=== PATIENT | male | born 1950 | race Caucasian/White ===

== ENCOUNTER 2016-10-06 06:58 | Emergency (ER) | payer MEDICARE, OTHER ==
[~2016-10-06] VITALS: Ht 175.3 cm; Wt 105.2 kg
[2016-10-06] MEDS ORDERED: CALC600T57 PO (07:20)
[2016-10-06] MEDS ORDERED: VITA-122 PO (07:20)
[2016-10-06] MEDS ORDERED: GLUC750C4 PO (07:20)
[2016-10-06] MEDS ORDERED: METF500T PO (07:20)
[2016-10-06] MEDS ORDERED: FEXO60CA PO (07:20)
[2016-10-06] MEDS ORDERED: LISI10TA4 PO (07:20)
[2016-10-06] MEDS ORDERED: ASPI81TA85 PO (07:20)
[2016-10-06] MEDS ORDERED: FISH1000 PO (07:20)
[2016-10-06] MEDS ORDERED: ATOR1TAB21 PO (07:20)
[2016-10-06] MEDS ORDERED: SULF500T2 PO (07:20)
[2016-10-06] MEDS ORDERED: DILT120C PO (07:20)
[2016-10-06] MEDS ORDERED: VITA400C35 PO (07:20)
[2016-10-06] MEDS ORDERED: XARE20TA PO (07:20)
[2016-10-06] MEDS ORDERED: ONDANSETRON 4MG/2ML VIAL (J2405) IV ONE (07:45)
[2016-10-06] MEDS ORDERED: MORPHINE 4 MG/ML 1ML SYRINGE IV PRN (07:45)
[2016-10-06 08:02] LABS: BASO % 0.4 % (0.0-1.0); EOS # 0.2 K/mm3 (0.0-0.50); EOS % 3.1 % (0.0-3.0); LARGE UNSTAINED CELL # 0.2 K/mm3 (0.0-0.4); LARGE UNSTAINED CELL % 2.8 % (0.0-4.0); LYMPH # 2.3 K/mm3 (1.5-4.5); LYMPH % 33.6 % (24.0-44.0); MEAN CORPUSCULAR HEMOGLOBIN 30.8 pg (27.0-33.0); MEAN CORPUSCULAR HGB CONC 32.8 g/dl (32.0-36.5); MEAN CORPUSCULAR VOLUME 93.7 fl (80.0-96.0); MONO # 0.5 K/mm3 (0.0-0.8); MONO % 7.3 % (0.0-5.0); NEUTROPHILS # 3.3 K/mm3 (1.8-7.7); NEUTROPHILS % 52.8 % (36.0-66.0); PLATELET COUNT, AUTOMATED 146 k/mm3 (150-450); RED CELL DISTRIBUTION WIDTH 13.8 % (11.5-14.5); WHITE BLOOD COUNT 6.3 K/mm3 (4.0-10.0)
[2016-10-06 08:19] LABS: ALBUMIN/GLOBULIN RATIO 1.14 (1.00-1.93); ALKALINE PHOSPHATASE 43 U/L (45-117); ALT/SGPT 39 U/L (12-78); ANION GAP 9 MEQ/L (8-16); AST/SGOT 41 U/L (15-37); BILIRUBIN,DIRECT 0.1 MG/DL (0.0-0.2); BILIRUBIN,TOTAL 0.4 MG/DL (0.2-1.0); BLOOD UREA NITROGEN 17 MG/DL (7-18); CALCIUM LEVEL 9.2 MG/DL (8.8-10.2); CARBON DIOXIDE LEVEL 25 MEQ/L (21-32); CHLORIDE LEVEL 105 MEQ/L (98-107); CREATININE FOR GFR 1.18 MG/DL (0.70-1.30); GLOMERULAR FILTRATION RATE > 60.0 (>49); GLUCOSE, FASTING 121 MG/DL (80-110); POTASSIUM SERUM 4.4 MEQ/L (3.5-5.1); SODIUM LEVEL 139 MEQ/L (136-145); TOTAL PROTEIN 7.5 GM/DL (6.4-8.2)
[2016-10-06] MEDS ORDERED: KETOROLAC 30 MG/ML VIAL (J1885) IV ONE (08:45)
--- NOTE | 2016-10-06 09:41 | REP ---
REASON: Abdominal pain. COMPARISON: Frontal view of the chest 12/14/2013, a portable exam. There is no change in the appearance of the frontal view of the chest. There is no free subdiaphragmatic air or acute abnormal opacities. Supine and upright views of the abdomen show a few gas-filled nondilated small loops scattered about the abdomen in no particular fashion. The organ silhouettes are obscured by intestinal content. IMPRESSION: Nonspecific intestinal gas pattern, possible early developing mild ileus. ? Signed by Juan Yoder DO 10/06/2016 10:20 A
[2016-10-06] MEDS ORDERED: ISOVUE-370 76% 100ML VIAL (Q9967) As Ordered ONE (13:06)
[2016-10-06] MEDS ORDERED: TRAM50TA2 PO (14:13)
--- NOTE | 2016-10-06 14:25 | REP ---
REASON: Right-sided chest pain. COMPARISON: None. Standard chest CT of 03/12/2007 was reviewed. Contrast utilized 100 mL Isovue 370. There is no mediastinal or hilar adenopathy or significant change compared to the prior exam. There are no pleural or pericardial effusions. There is no change in the imaged upper abdomen or imaged osseous structures. There is excellent visualization of the pulmonary arterial vasculature. There are no focal filling defects present that would be considered consistent with pulmonary emboli. Evaluation of the lung post show a bibasilar dependent subsegmental atelectatic changes. There is unchanged smooth pleural thickening left upper lobe and left mid lung zone regions along with right upper lobe. This is unchanged on the left, increased on the right. No new abnormal nodules, masses or parenchymal opacities have developed. IMPRESSION: No evidence of a pulmonary embolus. Mild pleural thickening as described above. Signed by Juan Yoder DO 10/06/2016 02:32 P
[2016-10-06 14:30] VITALS: BP 139/81
--- NOTE | 2016-10-07 09:13 | ECGEPIP ---
Stationary ECG Study [facility] - ED Test Date: 2016-10-06 Pat Name: CARLEE ZHENG Department: Room: - Gender: M Branding Specialist: noah : 1950 Requested By: Valentin Crowell Order Number: [id number] Reading MD: Merle Trevizo Measurements Intervals [place] Rate: 80 P: [place]: 0 QRS: 51 QRSD: 95 T: 16 QT: 357 QTc: 412 Interpretive Statements ATRIAL FIBRILLATION POSSIBLE ANTERIOR MYOCARDIAL INFARCTION, OF INDETERMINATE AGE NSTTW ABNORMALITY DECREASED RATE 12/14/13 Electronically Signed On 10-07-2016 9:12:53 EDT by Merle Trevizo
--- NOTE | 2016-10-07 09:17 | ECGEPIP ---
Stationary ECG Study [facility] - ED Test Date: 2016-10-06 Pat Name: CARLEE ZHENG Department: Room: - Gender: M Charge Aide: ROSAURA : 1950 Requested By: Valentin Crowell Order Number: [id number] Reading MD: Merle Trevizo Measurements Intervals [place] Rate: 70 P: [place]: 0 QRS: 38 QRSD: 101 T: 8 QT: 358 QTc: 386 Interpretive Statements ATRIAL FIBRILLATION POSSIBLE ANTERIOR MYOCARDIAL INFARCTION, OF INDETERMINATE AGE NSTTW ABNORMALITY DECREASED RATE 10/06/16 7:16 Electronically Signed On 10-07-2016 9:16:43 EDT by Merle Trevizo
== END 2016-10-06 14:48 | disposition home or self-care (01) ==
LOC: M ED 08:09
DX: S29.011A Strain of muscle and tendon of front wall of thorax, initial encounter (principal); I48.2 Chronic atrial fibrillation
CPT/HCPCS: 71275; 74022; 80048; 80076; 82550; 82553; 83690; 84484; 85025; 85379; 93005; 93041; 96374; 96375; 99285; J1885; Q9967

== ENCOUNTER 2017-01-24 05:59 | Day surgery (SDC) | payer MEDICARE, OTHER ==
[~2017-01-24] VITALS: Ht 175.3 cm; Wt 104.3 kg
[~2017-01-24 05:59] MED LIST: AMIO200T PO; ASPI81TA85 PO; ATOR1TAB21 PO; CALC600T31 PO; CALC600T57 PO; DILT120C PO; FEXO60CA PO; FISH1000 PO; GLUC750C4 PO; LISI10TA4 PO; METF500T13 PO; SULF500T2 PO; TRAM50TA2 PO; VITA-122 PO; VITA400C35 PO; XARE10TA PO; XARE20TA PO
[2017-01-24] MEDS ORDERED: LR 1,000 ML IV SCH ×2 (06:30→08:30)
[2017-01-24] MEDS ORDERED: PROPOFOL 200 MG/20 ML VIAL As Ordered ONE (07:18)
[2017-01-24] MEDS ORDERED: MIDAZOLAM INJ 2 MG/2 ML VIAL (J2250) As Ordered ONE (07:18)
[2017-01-24] MEDS ORDERED: LIDOCAINE 2% INJ 100 MG/5 ML SDV (FOR ANES.) As Ordered ONE (07:18)
--- NOTE | 2017-01-24 07:54 | RO ---
DATE OF PROCEDURE: 01/24/2017 INDICATION: Atrial fibrillation. POSTPROCEDURE DIAGNOSIS: Resumption of sinus rhythm. PROCEDURE: Direct current (DC) cardioversion. SURGEON: Dr. Cesar Milan MARINE STEAMFITTER: None ANESTHESIA: TYREE Riley MD BRIEF HISTORY: Mr. Souza is a 66-year-old man who has had persistent atrial fibrillation for approximately 3 months. He was started on amiodarone on an outpatient basis and because he failed to convert to sinus rhythm spontaneously he is brought for DC cardioversion in an elective setting. The consent for the procedure was previously obtained on outpatient basis. I examined the patient on the day of the procedure and there was no change in his clinical state. The patient and the patient's family questions were all answered before the procedure. The procedure was performed in the recovery room. Sedation was provided by anesthesiology service. He received a total of 150 mg of iv propofol. When appropriate level of sedation was accomplished, he was cardioverted using 200 joules of energy in biphasic mode administered in synchronized fashion. It led to faith of sinus mechanism without post conversion pause. There were no immediate complications and the patient tolerated the procedure well. He will be discharged home on his chronic medications with the exception of reducing the amiodarone to 200 mg daily from the current 400 mg. Remaining medications will be continued. I will see him in followup next week. GRETA
[2017-01-24] MEDS ORDERED: ONDANSETRON 4MG/2ML VIAL (J2405) IV PRN (08:30)
[2017-01-24 08:35] VITALS: BP 140/74
[2017-01-24] MEDS ORDERED: AMIODARONE 200 MG TAB (PACERONE) PO SCH (09:00)
--- NOTE | 2017-01-24 18:16 | ECGEPIP ---
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 Low limb voltages with slow precordial R-wave progression and persistent S waves in V5 and V6; body habitus versus pulmonary disease. Rule out prior septal injury. No change from 10/06/16 Electronically Signed On 01-24-2017 18:15:58 EDT by Dominic May
--- NOTE | 2017-01-24 18:22 | ECGEPIP ---
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 First-degree AV block Low voltages with slow precordial R-wave progression, persistent S waves V5 and V6, and small Q waves III and aVF;Body habitus versus pulmonary disease. Rule out prior Septal/Inferior injury No change from earlier this same day. Electronically Signed On 01-24-2017 18:22:30 EDT by Dominic May
== END 2017-01-24 08:45 | disposition home or self-care (01) ==
LOC: M SDC 05:59
PROVIDERS: ATTEND Internal Medicine Cardiovascular Disease
DX: I48.0 Paroxysmal atrial fibrillation (principal); E78.5 Hyperlipidemia, unspecified; E11.9 Type 2 diabetes mellitus without complications; E66.9 Obesity, unspecified; I11.9 Hypertensive heart disease without heart failure; M15.0 Primary generalized (osteo)arthritis; M06.9 Rheumatoid arthritis, unspecified; R60.9 Edema, unspecified; G47.33 Obstructive sleep apnea (adult) (pediatric); R06.02 Shortness of breath; R06.83 Snoring; N40.2 Nodular prostate without lower urinary tract symptoms; Z79.899 Other long term (current) drug therapy; Z79.84 Long term (current) use of oral hypoglycemic drugs; Z79.01 Long term (current) use of anticoagulants; Z96.1 Presence of intraocular lens; Z87.891 Personal history of nicotine dependence

== ENCOUNTER → 2017-01-29 | Outpatient (CLI) | payer MEDICARE, OTHER ==
[2017-01-29 11:25] LABS: BASO % 0.4 % (0.0-1.0); EOS # 0.1 K/mm3 (0.0-0.50); EOS % 2.1 % (0.0-3.0); LARGE UNSTAINED CELL # 0.1 K/mm3 (0.0-0.4); LARGE UNSTAINED CELL % 2.4 % (0.0-4.0); LYMPH # 1.9 K/mm3 (1.5-4.5); LYMPH % 29.1 % (24.0-44.0); MEAN CORPUSCULAR HEMOGLOBIN 30.9 pg (27.0-33.0); MEAN CORPUSCULAR HGB CONC 33.1 g/dl (32.0-36.5); MEAN CORPUSCULAR VOLUME 93.4 fl (80.0-96.0); MONO # 0.4 K/mm3 (0.0-0.8); NEUTROPHILS # 3.5 K/mm3 (1.8-7.7); PLATELET COUNT, AUTOMATED 166 k/mm3 (150-450); RED CELL DISTRIBUTION WIDTH 14.2 % (11.5-14.5)
[2017-01-29 12:48] LABS: ALBUMIN 4.2 GM/DL (3.2-5.2); ALBUMIN/GLOBULIN RATIO 1.24 (1.00-1.93); BILIRUBIN,TOTAL 0.4 MG/DL (0.2-1.0); CALCIUM LEVEL 9.1 MG/DL (8.8-10.2); CREATININE FOR GFR 1.28 MG/DL (0.70-1.30); GLOMERULAR FILTRATION RATE 59.7 (>49); MAGNESIUM LEVEL 2.1 MG/DL (1.8-2.4); POTASSIUM SERUM 4.9 MEQ/L (3.5-5.1); TOTAL PROTEIN 7.6 GM/DL (6.4-8.2)
== END ==
LOC: M LAB 10:51
PROVIDERS: ATTEND Emergency Medicine
DX: E55.9 Vitamin D deficiency, unspecified (principal); E11.9 Type 2 diabetes mellitus without complications; I10 Essential (primary) hypertension; E78.2 Mixed hyperlipidemia; I48.2 Chronic atrial fibrillation

== ENCOUNTER → 2017-04-16 | Outpatient (CLI) | payer MEDICARE, OTHER ==
[2017-04-16 11:22] LABS: MEAN CORPUSCULAR HEMOGLOBIN 30.4 pg (27.0-33.0); MEAN CORPUSCULAR HGB CONC 32.5 g/dl (32.0-36.5); MEAN CORPUSCULAR VOLUME 93.8 fl (80.0-96.0); PLATELET COUNT, AUTOMATED 186 10^3/uL (150-450); RED CELL DISTRIBUTION WIDTH 14.6 % (11.5-14.5); WHITE BLOOD COUNT 5.9 10^3/uL (4.0-10.0)
[2017-04-16 11:45] LABS: CALCIUM LEVEL 9.1 MG/DL (8.8-10.2); CREATININE FOR GFR 1.29 MG/DL (0.70-1.30); GLOMERULAR FILTRATION RATE 59.1 (>49); POTASSIUM SERUM 4.7 MEQ/L (3.5-5.1)
== END ==
LOC: M LAB 10:33
PROVIDERS: ATTEND Nurse Practitioner
DX: Z01.812 Encounter for preprocedural laboratory examination (principal); Z79.899 Other long term (current) drug therapy

== ENCOUNTER 2017-05-29 05:55 | Day surgery (SDC) | payer MEDICARE, OTHER ==
[~2017-05-29] VITALS: Ht 175.3 cm; Wt 101.2 kg
[~2017-05-29 05:55] MED LIST changes: +OMEP40CA2 PO
[2017-05-29] MEDS ORDERED: LR 1,000 ML IV SCH (06:00)
[2017-05-29] MEDS ORDERED: LIDOCAINE 2% INJ 100 MG/5 ML SDV (FOR ANES.) As Ordered ONE (07:00)
[2017-05-29] MEDS ORDERED: PROPOFOL 200 MG/20 ML VIAL As Ordered ONE (07:00)
--- NOTE | 2017-05-29 07:53 | RO ---
DATE OF PROCEDURE: 05/29/2017 PREPROCEDURE DIAGNOSIS: Atrial fibrillation POSTPROCEDURE DIAGNOSIS: Pentecostal of sinus rhythm PROCEDURE: Cardioversion SURGEON: Cesar Milan MD SENIOR SVP: None ANESTHESIA: HISTORY: Mr. Souza is a 66-year-old man who has a history of persistent atrial fibrillation diagnosed earlier this year. He had ablation performed in [place] in March, but there has been a relapse and he was brought electively for DC cardioversion. The nature of the procedure was discussed with the patient on an outpatient basis and appropriate consent was obtained. He was brought to the recovery room in fasting condition. The examination did not change from prior evaluations. PROCEDURE NOTE: Anesthesiology service provided sedation. IV propofol was used in total dose 190 mg. After appropriate level sedation was accomplished, he was cardioverted with 200 joules of energy with defibrillator patches applied in anterior position. He tolerated the procedure well and there were no immediate complications. A 12-lead ECG is pending at the time of my dictation. He will be discharged home to resume preadmission medications. Follow up will be arranged in my office next week. GRETA
[2017-05-29 08:35] VITALS: BP 148/67
--- NOTE | 2017-05-29 09:28 | ECGEPIP ---
Stationary ECG Study [facility] Test Date: 2017-05-29 Pat Name: CARLEE ZHENG Department: Room: - Gender: M Neckties Painter: [facility] : 1950 Requested By: Cesar Milan Order Number: [id number] Reading MD: Dominic May Measurements Intervals [place] Rate: 78 P: [place]: 0 QRS: 63 QRSD: 94 T: 25 QT: 371 QTc: 423 Interpretive Statements Underlying atrial fibrillation with controlled ventricular response. Low voltages with poor precordial R-wave progression, and Persistent S waves in V5 and V6; body habitus versus pulmonary disease. Rule out prior septal injury. Nonspecific ST/T-wave abnormalities. Rhythm change from 01/24/17 Electronically Signed On 05-29-2017 9:27:37 EST by Dominic May
--- NOTE | 2017-05-29 09:34 | ECGEPIP ---
Stationary ECG Study [facility] Test Date: 2017-05-29 Pat Name: CARLEE ZHENG Department: Room: - Gender: M Plating Inspector: : 1950 Requested By: Cesar Milan Order Number: [id number] Reading MD: Dominic May Measurements Intervals [place] Rate: 70 P: 68 [place]: 233 QRS: 62 QRSD: 93 T: 43 QT: 388 QTc: 421 Interpretive Statements Normal sinus rhythm. Left atrial conduction disturbance. First-degree AV block. Low voltages with slow precordial R-wave progression, And persistent S waves in V5 and V6; body habitus versus pulmonary disease. Rule out prior septal injury. Subtle nonspecific ST/T-wave abnormalities. Rhythm has converted from earlier the same day. Electronically Signed On 05-29-2017 9:34:30 EST by Dominic May
== END 2017-05-29 08:37 | disposition home or self-care (01) ==
LOC: M SDC 05:55
PROVIDERS: ATTEND Internal Medicine Cardiovascular Disease
DX: I48.91 Unspecified atrial fibrillation (principal); I11.9 Hypertensive heart disease without heart failure; E11.9 Type 2 diabetes mellitus without complications; E78.00 Pure hypercholesterolemia, unspecified; R29.898 Other symptoms and signs involving the musculoskeletal system; M06.9 Rheumatoid arthritis, unspecified; M15.0 Primary generalized (osteo)arthritis; R06.83 Snoring; G47.33 Obstructive sleep apnea (adult) (pediatric); N40.0 Benign prostatic hyperplasia without lower urinary tract symptoms; J30.9 Allergic rhinitis, unspecified; Z79.899 Other long term (current) drug therapy; Z79.01 Long term (current) use of anticoagulants; Z79.84 Long term (current) use of oral hypoglycemic drugs; Z96.1 Presence of intraocular lens

== ENCOUNTER → 2017-08-02 | Outpatient (CLI) | payer MEDICARE, OTHER ==
[2017-08-02 11:14] LABS: BASO % 0.3 % (0.0-1.0); EOS # 0.1 10^3/uL (0.0-0.50); HEMATOCRIT 43.3 % (42.0-52.0); HEMOGLOBIN 13.8 g/dl (14.0-18.0); IMMATURE GRANULOCYTE % 0.3 % (0-3.0); LYMPH # 2.5 10^3/uL (1.5-4.5); LYMPH % 37.4 % (24.0-44.0); MEAN CORPUSCULAR HEMOGLOBIN 29.2 pg (27.0-33.0); MEAN CORPUSCULAR HGB CONC 31.9 g/dl (32.0-36.5); MEAN CORPUSCULAR VOLUME 91.7 fl (80.0-96.0); MONO # 0.6 10^3/uL (0.0-0.8); MONO % 9.3 % (0.0-5.0); NEUTROPHILS # 3.3 10^3/uL (1.8-7.7); NEUTROPHILS % 50.7 % (36.0-66.0); PLATELET COUNT, AUTOMATED 187 10^3/uL (150-450); RED BLOOD COUNT 4.72 10^6/uL (4.30-6.10); RED CELL DISTRIBUTION WIDTH 16.1 % (11.5-14.5); WHITE BLOOD COUNT 6.6 10^3/uL (4.0-10.0)
[2017-08-02 11:42] LABS: ESTIMATED AVERAGE GLUCOSE 128 MG/DL (60-110); HEMOGLOBIN A1c 6.1 %
[2017-08-02 11:45] LABS: ALBUMIN 3.8 GM/DL (3.2-5.2); ALBUMIN/GLOBULIN RATIO 1.19 (1.00-1.93); ALKALINE PHOSPHATASE 61 U/L (45-117); ALT/SGPT 30 U/L (12-78); ANION GAP 7 MEQ/L (8-16); AST/SGOT 25 U/L (7-37); BILIRUBIN,TOTAL 0.3 MG/DL (0.2-1.0); BLOOD UREA NITROGEN 18 MG/DL (7-18); CALCIUM LEVEL 8.9 MG/DL (8.8-10.2); CARBON DIOXIDE LEVEL 26 MEQ/L (21-32); CHLORIDE LEVEL 110 MEQ/L (98-107); CHOLESTEROL LEVEL 135 MG/DL (<200); CREATININE FOR GFR 1.16 MG/DL (0.70-1.30); GLOMERULAR FILTRATION RATE > 60.0 (>49); GLUCOSE, FASTING 102 MG/DL (70-100); HDL CHOLESTEROL 34 MG/DL (>40); MAGNESIUM LEVEL 2.1 MG/DL (1.8-2.4); NON-HDL-C 101 MG/DL; POTASSIUM SERUM 5.1 MEQ/L (3.5-5.1); SODIUM LEVEL 143 MEQ/L (136-145); TRIGLYCERIDES LEVEL 170 MG/DL (<150)
[2017-08-02 12:23] LABS: TOTAL 25(OH) VITAMIN D 17.6 NG/ML (30.0-100.0)
== END ==
LOC: M LAB 10:24
DX: E55.9 Vitamin D deficiency, unspecified (principal); I10 Essential (primary) hypertension; E78.2 Mixed hyperlipidemia; E11.9 Type 2 diabetes mellitus without complications; I48.2 Chronic atrial fibrillation
CPT/HCPCS: 83735

== ENCOUNTER → 2018-02-05 | Outpatient (CLI) | payer MEDICARE, OTHER ==
[2018-02-05 10:17] LABS: BASO % 0.3 % (0.0-1.0); EOS # 0.1 10^3/uL (0.0-0.50); EOS % 1.8 % (0.0-3.0); HEMATOCRIT 42.8 % (42.0-52.0); IMMATURE GRANULOCYTE % 0.3 % (0-3.0); LYMPH # 2.1 10^3/uL (1.5-4.5); LYMPH % 34.1 % (24.0-44.0); MEAN CORPUSCULAR HEMOGLOBIN 30.5 pg (27.0-33.0); MEAN CORPUSCULAR HGB CONC 32.7 g/dl (32.0-36.5); MEAN CORPUSCULAR VOLUME 93.2 fl (80.0-96.0); MONO # 0.6 10^3/uL (0.0-0.8); MONO % 9.5 % (0.0-5.0); NEUTROPHILS # 3.3 10^3/uL (1.8-7.7); PLATELET COUNT, AUTOMATED 163 10^3/uL (150-450); RED BLOOD COUNT 4.59 10^6/uL (4.30-6.10); WHITE BLOOD COUNT 6.2 10^3/uL (4.0-10.0)
[2018-02-05 10:56] LABS: ALBUMIN 3.9 GM/DL (3.2-5.2)
[2018-02-05 10:56] LABS: FERRITIN 390 NG/ML (26-388); IRON (FE) 75 UG/DL (65-175); PERCENT SATURATION 23.3 % (19.7-50.0); TOTAL IRON BINDING CAPACITY 322 UG/DL (250-450)
[2018-02-05 11:01] LABS: ESTIMATED AVERAGE GLUCOSE 123 MG/DL (60-110); HEMOGLOBIN A1c 5.9 %
== END ==
LOC: M LAB 09:34
DX: Z01.812 Encounter for preprocedural laboratory examination (principal); M17.12 Unilateral primary osteoarthritis, left knee
CPT/HCPCS: 82040

== ENCOUNTER → 2018-02-05 | Outpatient (CLI) | payer MEDICARE, OTHER ==
[2018-02-05 10:17] LABS: BASO % 0.5 % (0.0-1.0); EOS # 0.1 10^3/uL (0.0-0.50); EOS % 2.2 % (0.0-3.0); HEMATOCRIT 43.8 % (42.0-52.0); HEMOGLOBIN 14.1 g/dl (13.5-17.5); IMMATURE GRANULOCYTE % 0.3 % (0-3.0); LYMPH # 2.2 10^3/uL (1.5-4.5); LYMPH % 33.2 % (24.0-44.0); MEAN CORPUSCULAR HEMOGLOBIN 30.6 pg (27.0-33.0); MEAN CORPUSCULAR HGB CONC 32.2 g/dl (32.0-36.5); MONO # 0.7 10^3/uL (0.0-0.8); MONO % 10.1 % (0.0-5.0); NEUTROPHILS # 3.5 10^3/uL (1.8-7.7); NEUTROPHILS % 53.7 % (36.0-66.0); PLATELET COUNT, AUTOMATED 158 10^3/uL (150-450); RED BLOOD COUNT 4.61 10^6/uL (4.30-6.10); RED CELL DISTRIBUTION WIDTH 14.9 % (11.5-14.5); WHITE BLOOD COUNT 6.5 10^3/uL (4.0-10.0)
[2018-02-05 11:02] LABS: ESTIMATED AVERAGE GLUCOSE 117 MG/DL (60-110); HEMOGLOBIN A1c 5.7 %
[2018-02-05 11:04] LABS: ALBUMIN 3.9 GM/DL (3.2-5.2); ALBUMIN/GLOBULIN RATIO 1.15 (1.00-1.93); ALKALINE PHOSPHATASE 45 U/L (45-117); ALT/SGPT 28 U/L (12-78); ANION GAP 6 MEQ/L (8-16); AST/SGOT 28 U/L (7-37); BILIRUBIN,TOTAL 0.4 MG/DL (0.2-1.0); BLOOD UREA NITROGEN 15 MG/DL (7-18); CALCIUM LEVEL 8.8 MG/DL (8.8-10.2); CARBON DIOXIDE LEVEL 26 MEQ/L (21-32); CHLORIDE LEVEL 111 MEQ/L (98-107); CHOLESTEROL LEVEL 124 MG/DL (<200); CHOLESTEROL RISK RATIO 4.133 (<5); CREATININE FOR GFR 1.02 MG/DL (0.70-1.30); GLOMERULAR FILTRATION RATE > 60.0 (>49); GLUCOSE, FASTING 94 MG/DL (70-100); HDL CHOLESTEROL 30 MG/DL (>40); LDL CHOLESTEROL 51.4 MG/DL (<100); MAGNESIUM LEVEL 2.1 MG/DL (1.8-2.4); NON-HDL-C 94 MG/DL; POTASSIUM SERUM 4.6 MEQ/L (3.5-5.1); SODIUM LEVEL 143 MEQ/L (136-145); TOTAL PROTEIN 7.3 GM/DL (6.4-8.2); TRIGLYCERIDES LEVEL 213 MG/DL (<150)
[2018-02-05 11:06] LABS: CREATININE, URINE 99.2 MG/DL; MALB URINE SIEMENS 42.2 MG/L; MAU/CREAT RATIO 42.5 MCG/MG (0.0-30.0)
[2018-02-05 11:22] LABS: TOTAL 25(OH) VITAMIN D 50.2 NG/ML (30.0-100.0)
== END ==
LOC: M LAB 09:30
DX: Z01.818 Encounter for other preprocedural examination (principal); E55.9 Vitamin D deficiency, unspecified; I10 Essential (primary) hypertension; E78.2 Mixed hyperlipidemia; M17.12 Unilateral primary osteoarthritis, left knee; E11.9 Type 2 diabetes mellitus without complications
CPT/HCPCS: 83550

== ENCOUNTER → 2018-03-12 | Outpatient (CLI) | payer MEDICARE, OTHER ==
[2018-03-12 15:39] LABS: ANION GAP 11 MEQ/L (8-16); BLOOD UREA NITROGEN 41 MG/DL (7-18); CALCIUM LEVEL 9.4 MG/DL (8.8-10.2); CARBON DIOXIDE LEVEL 24 MEQ/L (21-32); CHLORIDE LEVEL 106 MEQ/L (98-107); CREATININE FOR GFR 1.49 MG/DL (0.70-1.30); GLOMERULAR FILTRATION RATE 49.9 (>49); GLUCOSE, FASTING 89 MG/DL (70-100); POTASSIUM SERUM 5.6 MEQ/L (3.5-5.1); SODIUM LEVEL 141 MEQ/L (136-145)
== END ==
LOC: M LAB 14:20
DX: E87.5 Hyperkalemia (principal)
CPT/HCPCS: 80048

== ENCOUNTER → 2018-03-26 | Outpatient (CLI) | payer MEDICARE, OTHER ==
[2018-03-26 13:26] LABS: ESTIMATED AVERAGE GLUCOSE 120 MG/DL (60-110); HEMOGLOBIN A1c 5.8 %
[2018-03-26 13:39] LABS: ALBUMIN 4.1 GM/DL (3.2-5.2); ALBUMIN/GLOBULIN RATIO 1.32 (1.00-1.93); ALKALINE PHOSPHATASE 67 U/L (45-117); ALT/SGPT 28 U/L (12-78); ANION GAP 6 MEQ/L (8-16); AST/SGOT 30 U/L (7-37); BILIRUBIN,TOTAL 0.3 MG/DL (0.2-1.0); BLOOD UREA NITROGEN 18 MG/DL (7-18); CALCIUM LEVEL 9.2 MG/DL (8.8-10.2); CARBON DIOXIDE LEVEL 27 MEQ/L (21-32); CHLORIDE LEVEL 109 MEQ/L (98-107); CHOLESTEROL LEVEL 106 MG/DL (<200); CHOLESTEROL RISK RATIO 3.212 (<5); GLOMERULAR FILTRATION RATE 58.4 (>49); GLUCOSE, FASTING 85 MG/DL (70-100); HDL CHOLESTEROL 33 MG/DL (>40); LDL CHOLESTEROL 39 MG/DL (<100); NON-HDL-C 73 MG/DL; POTASSIUM SERUM 5.6 MEQ/L (3.5-5.1); SODIUM LEVEL 142 MEQ/L (136-145); TOTAL PROTEIN 7.2 GM/DL (6.4-8.2); TRIGLYCERIDES LEVEL 168 MG/DL (<150)
== END ==
LOC: M LAB 11:51
DX: I10 Essential (primary) hypertension (principal)
CPT/HCPCS: 80053

== ENCOUNTER → 2018-04-07 | Outpatient (CLI) | payer MEDICARE, OTHER ==
[2018-04-07 13:33] LABS: ANION GAP 7 MEQ/L (8-16); BLOOD UREA NITROGEN 17 MG/DL (7-18); CALCIUM LEVEL 9.6 MG/DL (8.8-10.2); CARBON DIOXIDE LEVEL 25 MEQ/L (21-32); CHLORIDE LEVEL 105 MEQ/L (98-107); CREATININE FOR GFR 1.12 MG/DL (0.70-1.30); GLOMERULAR FILTRATION RATE > 60.0 (>49); GLUCOSE, FASTING 83 MG/DL (70-100); POTASSIUM SERUM 5.1 MEQ/L (3.5-5.1); SODIUM LEVEL 137 MEQ/L (136-145)
== END ==
LOC: M LAB 12:28
DX: E87.5 Hyperkalemia (principal)
CPT/HCPCS: 80048

== ENCOUNTER → 2019-01-09 | Outpatient (CLI) | payer MEDICARE, OTHER ==
[~2019-01-09] MED LIST changes: -DILT120C PO; +DILT120C77 PO
[2019-01-09 12:49] LABS: HEMATOCRIT 46.3 % (42.0-52.0); HEMOGLOBIN 14.8 g/dl (13.5-17.5); MEAN CORPUSCULAR HEMOGLOBIN 30.8 pg (27.0-33.0); MEAN CORPUSCULAR VOLUME 96.3 fl (80.0-96.0); PLATELET COUNT, AUTOMATED 143 10^3/uL (150-450); RED BLOOD COUNT 4.81 10^6/uL (4.30-6.10); WHITE BLOOD COUNT 6.9 10^3/uL (4.0-10.0)
[2019-01-09 13:49] LABS: HEMOGLOBIN A1c 6.3 %
[2019-01-09 13:52] LABS: BLOOD UREA NITROGEN 21 MG/DL (7-18); CALCIUM LEVEL 9.2 MG/DL (8.8-10.2); CARBON DIOXIDE LEVEL 25 MEQ/L (21-32); CHLORIDE LEVEL 110 MEQ/L (98-107); CHOLESTEROL LEVEL 115 MG/DL (<200); CHOLESTEROL RISK RATIO 3.709 (<5); CREATININE FOR GFR 1.08 MG/DL (0.70-1.30); GLOMERULAR FILTRATION RATE > 60.0 (>49); GLUCOSE, FASTING 107 MG/DL (70-100); HDL CHOLESTEROL 31 MG/DL (>40); LDL CHOLESTEROL 47 MG/DL (<100); NON-HDL-C 84 MG/DL; POTASSIUM SERUM 4.9 MEQ/L (3.5-5.1); SODIUM LEVEL 142 MEQ/L (136-145); TRIGLYCERIDES LEVEL 187 MG/DL (<150)
== END ==
LOC: M LAB 12:15
PROVIDERS: ATTEND Internal Medicine Cardiovascular Disease
DX: E78.5 Hyperlipidemia, unspecified (principal); E11.9 Type 2 diabetes mellitus without complications; I48.0 Paroxysmal atrial fibrillation

== ENCOUNTER → 2019-02-19 | Outpatient (CLI) | payer MEDICARE, OTHER ==
[~2019-02-19] MED LIST changes: -OMEP40CA2 PO; +OMEP40CA97 PO
[2019-02-19 11:42] LABS: HEMOGLOBIN A1c 5.8 %
[2019-02-19 11:53] LABS: RHEUMATOID FACTOR QUANT < 10.0 IU/ML (<15.0); TOTAL PROTEIN 7.3 GM/DL (6.4-8.2)
[2019-02-19 11:55] LABS: FOLATE 10.5 NG/ML; VITAMIN B12 LEVEL 228 PG/ML
[2019-02-23 00:06] LABS: ANTI DOUBLE STRAND-DNA AB <1 IU/mL (0-9); ANTINUCLEAR ANTIBODIES DIRECT Positive (Negative); RNP ANTIBODIES 0.5 AI (0.0-0.9); SJOGREN'S ANTI SS-A <0.2 AI (0.0-0.9); SJOGREN'S ANTI SS-B <0.2 AI (0.0-0.9); SMITH ANTIBODIES <0.2 AI (0.0-0.9); VITAMIN B1 LEVEL WHOLE BLOOD 194.7 nmol/L (66.5-200.0); VITAMIN B6,PYRIDOXAL PHOSPHATE 7.8 ug/L (5.3-46.7); VITAMIN E(ALPHA TOCOPHEROL) 17.8 mg/L (9.0-29.0); VITAMIN E(GAMMA TOCOPHEROL) 1.1 mg/L (0.5-4.9)
[2019-02-25 13:11] LABS: ALBUMIN % 60.6 % (55.8-66.1); ALPHA-2-GLOBULINS % 11.8 % (7.1-11.8)
[2019-02-25 13:12] LABS: ALBUMIN 4.42 GM/DL (3.29-5.55); ALPHA-1-GLOBULINS 0.29 GM/DL (0.17-0.41); ALPHA-2-GLOBULINS 0.86 GM/DL (0.42-0.99); BETA-1-GLOBULINS 0.42 GM/DL (0.28-0.60); BETA-1-GLOBULINS % 5.7 % (4.7-7.2); BETA-2-GLOBULINS 0.34 GM/DL (0.19-0.55); BETA-2-GLOBULINS % 4.6 % (3.2-6.5); GAMMA GLOBULIN % 13.3 % (11.1-18.8); GAMMA GLOBULINS 0.97 GM/DL (0.65-1.58)
[2019-03-06 11:17] LABS: DRVV SCREEN 51.7 SEC
[2019-03-06 11:21] LABS: PTT LUPUS TYPE ANTICOAG SCREEN 1.3 (0-1.2)
[2019-03-06 11:27] LABS: DRVV CONFIRM 36.9 SEC
[2019-03-06 11:30] LABS: NORMALIZED RATIO 1.3 (0.00-1.20)
[2019-03-09 00:07] LABS: HEXAGONAL PHASE PHOSPHOLIPID 0 sec (0-11)
== END ==
LOC: M LAB 09:24
PROVIDERS: ATTEND Psychiatry & Neurology Neurology
DX: G62.9 Polyneuropathy, unspecified (principal); Z79.899 Other long term (current) drug therapy

== ENCOUNTER → 2019-04-02 | Outpatient (CLI) | payer MEDICARE, OTHER ==
[2019-04-03 14:29] LABS: ANTI DOUBLE STRAND-DNA AB <1 IU/mL (0-9); ANTINUCLEAR ANTIBODIES DIRECT Positive (Negative); RNP ANTIBODIES 0.4 AI (0.0-0.9); SJOGREN'S ANTI SS-A <0.2 AI (0.0-0.9); SJOGREN'S ANTI SS-B <0.2 AI (0.0-0.9); SMITH ANTIBODIES <0.2 AI (0.0-0.9)
== END ==
LOC: M LAB 10:47
PROVIDERS: ATTEND Psychiatry & Neurology Neurology
DX: M13.80 Other specified arthritis, unspecified site (principal)

== ENCOUNTER → 2019-07-15 | Outpatient (REF) | payer MEDICARE, OTHER | LOC: M LAB REF 16:35 | PROVIDERS: ATTEND Internal Medicine | DX: M06.9 Rheumatoid arthritis, unspecified (principal) ==

== ENCOUNTER → 2020-05-29 | Outpatient (CLI) | payer MEDICARE, OTHER ==
[~2020-05-29] MED LIST changes: -AMIO200T PO; +AMIO200T3 PO; -ASPI81TA85 PO; +ASPI81TA86 PO; +CIDA500T2 PO; +D31000TA2 PO; +LIPI20TA PO; +METO1TAB32 PO; +VITA-55 PO
== END ==
LOC: M LABSMTC 09:08
PROVIDERS: ATTEND Anesthesiology
DX: Z11.59 Encounter for screening for other viral diseases (principal)

== ENCOUNTER 2020-06-03 11:14 | Day surgery (SDC) | payer MEDICARE, OTHER ==
[~2020-06-03] VITALS: Ht 172.7 cm; Wt 98.9 kg
[~2020-06-03 11:14] MED LIST changes: +NS 1,000 ML IV ONE
[2020-06-03] MEDS ORDERED: LIDOCAINE 2% 100MG/5ML SDV (FOR ANES.) As Ordered ONE (11:44)
[2020-06-03] MEDS ORDERED: propofoL 200 MG/20 ML VIAL As Ordered ONE (11:44)
--- NOTE | 2020-06-03 12:45 | ROOR ---
Patient Name: Shawn Souza Procedure Date: 06/03/2020 12:09 PM Date of : 1950 Age: 69 Room: [facility] Gender: Male Note Status: Finalized Procedure: Total Colonoscopy to Cecum + Cold Snare Polypectomy + Hemoclips Indications: High risk colon cancer surveillance: Personal history of colonic polyps, Last colonoscopy: 2012 Providers: Alexander Kerr MD Referring MD: RAY TRINH JR, MD Requesting Provider: Medicines: Monitored Anesthesia Care Complications: No immediate complications. Procedure: Pre-Anesthesia Assessment: - The heart rate, respiratory rate, oxygen saturations, blood pressure, adequacy of pulmonary ventilation, and response to care were monitored throughout the procedure. The Colonoscope was introduced through the anus and advanced to the cecum, identified by appendiceal orifice and ileocecal valve. The colonoscopy was performed without difficulty. The patient tolerated the procedure well. The quality of the bowel preparation was excellent. Findings: The perianal and digital rectal examinations were normal. Non-bleeding internal hemorrhoids were found during retroflexion. The hemorrhoids were small and Grade I (internal hemorrhoids that do not prolapse). A small polyp was found at 20 cm proximal to the anus. The polyp was sessile. The polyp was removed with a cold snare. Resection and retrieval were complete. To prevent bleeding after the polypectomy, one hemostatic clip was successfully placed (MR conditional). There was no bleeding at the end of the procedure. A small polyp was found in the hepatic flexure. The polyp was sessile. The polyp was removed with a cold snare. Resection and retrieval were complete. To prevent bleeding after the polypectomy, one hemostatic clip was successfully placed (MR conditional). There was no bleeding at the end of the procedure. The exam was otherwise without abnormality on direct and retroflexion views. Impression: - Non-bleeding internal hemorrhoids. - One small polyp at 20 cm proximal to the anus, removed with a cold snare. Resected and retrieved. Clip (MR conditional) was placed. - One small polyp at the hepatic flexure, removed with a cold snare. Resected and retrieved. Clip (MR conditional) was placed. - The examination was otherwise normal on direct and retroflexion views. - The exam was otherwise normal to the cecum. Recommendation: - Patient has a contact number available for emergencies. The signs and symptoms of potential delayed complications were discussed with the patient. Return to normal activities tomorrow. Written discharge instructions were provided to the patient. - High fiber diet. - Discharge patient to home. - Resume Xarelto (rivaroxaban) at prior dose tomorrow. - Continue present medications. - Repeat colonoscopy in 5 years for surveillance. - Return to referring physician. - Await pathology results. - Telephone GI clinic for pathology results in 1 week. - The findings and recommendations were discussed with the patient. Procedure Code(s): --- Professional --- 72321, Colonoscopy, flexible; with removal of tumor(s), polyp(s), or other lesion(s) by snare technique Diagnosis Code(s): --- Professional --- Z86.010, Personal history of colonic polyps K64.0, First degree hemorrhoids K63.5, Polyp of colon CPT copyright 2019 [employer]. All rights reserved. The codes documented in this report are preliminary and upon wheel truing machine tender review may be revised to meet current compliance requirements. Alexander Kerr MD Alexander Kerr MD 06/03/2020 12:45:26 PM Electronically signed by Alexander Kerr MD Number of Addenda: 0 Note Initiated On: 06/03/2020 12:09 PM Estimated Blood Loss: Estimated blood loss: none.
[2020-06-03 13:09] VITALS: BP 114/64
== END 2020-06-03 13:11 | disposition home or self-care (01) ==
LOC: M OPP 11:14
PROVIDERS: ATTEND Internal Medicine Gastroenterology
DX: Z12.11 Encounter for screening for malignant neoplasm of colon (principal); Z86.010 Personal history of colon polyps; Z80.0 Family history of malignant neoplasm of digestive organs; K63.5 Polyp of colon; K64.0 First degree hemorrhoids; I10 Essential (primary) hypertension; I48.91 Unspecified atrial fibrillation; E11.9 Type 2 diabetes mellitus without complications; Z79.84 Long term (current) use of oral hypoglycemic drugs; Z79.899 Other long term (current) drug therapy; Z87.891 Personal history of nicotine dependence

== ENCOUNTER → 2021-06-01 | Outpatient (REF) ==
[~2021-06-01] MED LIST changes: +LISI10TA22 PO; -LISI10TA4 PO; -NS 1,000 ML IV ONE; +OMEP40CA4 PO; -OMEP40CA97 PO
== END ==
LOC: M LABSMTC 11:57
PROVIDERS: ATTEND Pediatrics
DX: Z11.52 Encounter for screening for COVID-19 (principal)

== ENCOUNTER → 2021-12-08 | Outpatient (CLI) | payer MEDICARE, OTHER ==
[~2021-12-08] MED LIST changes: -AMIO200T3 PO; +AMIO200T49 PO; -D31000TA2 PO; -FEXO60CA PO; +FEXO60TA99 PO; +GASTROGRAFIN SOLUTION 30ML (Q9963) As Ordered ONE; +ISOVUE-370 76% 100ML VIAL As Ordered ONE; +VITA100093 PO
== END ==
LOC: M RAD 15:34
PROVIDERS: ATTEND Physician Assistant Medical
DX: I71.4 Abdominal aortic aneurysm, without rupture (principal); R10.32 Left lower quadrant pain
CPT/HCPCS: 74177; Q9963; Q9967

== ENCOUNTER 2023-03-26 10:34 | Emergency (ER) | payer MEDICARE, OTHER ==
[~2023-03-26] VITALS: Ht 172.7 cm; Wt 101.2 kg
[~2023-03-26 10:34] MED LIST changes: -GASTROGRAFIN SOLUTION 30ML (Q9963) As Ordered ONE; -ISOVUE-370 76% 100ML VIAL As Ordered ONE
[2023-03-26] MEDS ORDERED: JARD1TAB PO (10:59)
[2023-03-26 13:48] LABS: BASO % 0.2 % (0.0-1.0); EOS # 0.1 10^3/uL (0.0-0.5); HEMATOCRIT 46.9 % (42.0-52.0); HEMOGLOBIN 15.3 g/dl (13.5-17.5); LYMPH # 2.4 10^3/uL (1.5-5.0); MEAN CORPUSCULAR HEMOGLOBIN 31.7 pg (27.0-33.0); MEAN CORPUSCULAR HGB CONC 32.6 g/dl (32.0-36.5); MEAN CORPUSCULAR VOLUME 97.1 fl (80.0-96.0); MONO # 0.9 10^3/uL (0.0-0.8); MONO % 10.4 % (2.0-8.0); NEUTROPHILS # 4.8 10^3/uL (1.5-8.5); NEUTROPHILS % 59.3 % (36.0-66.0); PLATELET COUNT, AUTOMATED 152 10^3/uL (150-450); RED BLOOD COUNT 4.83 10^6/uL (4.30-6.10); WHITE BLOOD COUNT 8.2 10^3/uL (4.0-10.0)
[2023-03-26 14:05] LABS: INR 1.25; PROTHROMBIN TIME 15.4 SECONDS (12.5-14.5)
[2023-03-26 14:06] LABS: PARTIAL THROMBOPLASTIN TIME 44.8 SECONDS (24.8-34.2)
[2023-03-26 14:15] LABS: BLOOD UREA NITROGEN 19 MG/DL (9-23); CALCIUM LEVEL 9.4 MG/DL (8.3-10.6); CARBON DIOXIDE LEVEL 27 MMOL/L (20-31); CHLORIDE LEVEL 105 MMOL/L (98-107); CREATININE FOR GFR 1.22 MG/DL (0.70-1.30); GLOMERULAR FILTRATION RATE > 60.0 (>42); GLUCOSE, FASTING 100 MG/DL (74-106); POTASSIUM SERUM 4.4 MMOL/L (3.5-5.1); SODIUM LEVEL 139 MMOL/L (136-145)
[2023-03-26] MEDS ORDERED: ISOVUE-370 76% 100ML VIAL As Ordered ONE (14:19)
[2023-03-26 16:33] VITALS: BP 164/82; TEMP 97.9; O2SAT 96
== END 2023-03-26 16:35 | disposition home or self-care (01) ==
LOC: M ED 10:34
DX: M25.512 Pain in left shoulder (principal); S70.01XA Contusion of right hip, initial encounter; S90.414A Abrasion, right lesser toe(s), initial encounter; W19.XXXA Unspecified fall, initial encounter; Y92.89 Other specified places as the place of occurrence of the external cause; Y93.89 Activity, other specified; Y99.8 Other external cause status; E11.9 Type 2 diabetes mellitus without complications; I48.91 Unspecified atrial fibrillation; G47.30 Sleep apnea, unspecified; Z79.01 Long term (current) use of anticoagulants; Z87.891 Personal history of nicotine dependence; Z79.899 Other long term (current) drug therapy
CPT/HCPCS: 36415; 70450; 71260; 72125; 72128; 72131; 73030; 73060; 73502; 73552; 73630; 74177; 80048; 84484; 85025; 85610; 85730; 93005; 93041; 94760; 99285; Q9967

== ENCOUNTER → 2023-04-09 | Outpatient (CLI) | payer MEDICARE, OTHER ==
[~2023-04-09] MED LIST changes: +JARD1TAB PO
== END ==
LOC: M EKG 09:33
PROVIDERS: ATTEND Internal Medicine
DX: R55 Syncope and collapse (principal); I48.91 Unspecified atrial fibrillation

== ENCOUNTER → 2023-05-31 | Outpatient (REF) | payer MEDICARE, OTHER | LOC: M LAB REF 16:47 | PROVIDERS: ATTEND Internal Medicine | DX: M25.512 Pain in left shoulder (principal) ==

== ENCOUNTER → 2023-11-20 | Outpatient (REF) | payer MEDICARE, OTHER ==
[2023-11-20 17:01] LABS: IRON (FE) 80 UG/DL (65-175); PERCENT SATURATION 26.6 % (19.7-50.0); TOTAL IRON BINDING CAPACITY 301 UG/DL (250-425)
[2023-11-20 17:03] LABS: FERRITIN 390.3 NG/ML (10.5-307.3)
[2023-11-20 17:16] LABS: HEPATITIS B SURFACE ANTIGEN NEGATIVE (NEGATIVE)
[2023-11-20 17:37] LABS: HEPATITIS B CORE ANTIBODY IGM NEGATIVE (NEGATIVE); HEPATITIS C VIRUS ABY INDEX < 0.02 INDEX (<0.8)
== END ==
LOC: M LAB REF 16:28
PROVIDERS: ATTEND Internal Medicine
DX: K75.81 Nonalcoholic steatohepatitis (NASH) (principal)

== ENCOUNTER → 2023-12-17 | Outpatient (CLI) | payer MEDICARE, OTHER | LOC: M RAD 07:46 | PROVIDERS: ATTEND Nurse Practitioner Family | DX: K76.0 Fatty (change of) liver, not elsewhere classified (principal) ==

== ENCOUNTER → 2024-02-21 | Outpatient (CLI) | payer MEDICARE, OTHER | LOC: M PLAIMG 12:29 | PROVIDERS: ATTEND Nurse Practitioner Family | DX: K75.81 Nonalcoholic steatohepatitis (NASH) (principal) ==

== ENCOUNTER → 2024-04-01 | Outpatient (REF) | payer MEDICARE, OTHER | LOC: M SFHCDERM 17:38 | PROVIDERS: ATTEND Physician Assistant | DX: C44.319 Basal cell carcinoma of skin of other parts of face (principal) ==

== ENCOUNTER → 2024-06-10 | Outpatient (REF) | payer MEDICARE, OTHER ==
[2024-06-10 16:54] LABS: APPEARANCE, URINE MANUAL TURBID (CLEAR); COLOR, URINE MANUAL RED (YELLOW)
[2024-06-10 17:14] LABS: BILIRUBIN, URINE MANUAL NEGATIVE (NEGATIVE); BLOOD URINE MANUAL POSITIVE (NEGATIVE); GLUCOSE, URINE (UA) MANUAL 4+(1000 MG/DL) mg/dL (NEGATIVE); KETONE, URINE MANUAL NEGATIVE (NEGATIVE); LEUKOCYTE ESTERASE, URINE MAN NEGATIVE (NEGATIVE); NITRITE, URINE MANUAL NEGATIVE (NEGATIVE); PROTEIN, URINE MANUAL 1+ mg/dL (NEGATIVE); SPECIFIC GRAVITY,URINE MANUAL 1.015 (1.002-1.035); UROBILINOGEN, URINE MANUAL NORMAL (NORMAL)
[2024-06-10 19:22] LABS: RBC, URINE TNTC /hpf (0-3); SQUAMOUS EPITHELIAL CELL URINE SMALL AMOUNT /hpf (SMALL AMT); TRANSITIONAL EPI CELLS, URINE SMALL AMOUNT /hpf
[2024-06-10 19:23] LABS: BACTERIA, URINE NONE SEEN; HYALINE CAST, URINE NONE SEEN /lpf (0-1); MUCUS, URINE SMALL AMOUNT (NEGATIVE)
== END ==
LOC: M LAB REF 16:05
PROVIDERS: ATTEND Internal Medicine
DX: R31.9 Hematuria, unspecified (principal)

== ENCOUNTER → 2024-06-11 | Outpatient (CLI) | payer MEDICARE, OTHER ==
[~2024-06-11] MED LIST changes: +ISOVUE-370 76% 100ML VIAL As Ordered ONE
== END ==
LOC: M RAD 12:10
PROVIDERS: ATTEND Internal Medicine
DX: N28.9 Disorder of kidney and ureter, unspecified (principal); I71.40 Abdominal aortic aneurysm, without rupture, unspecified; K40.90 Unilateral inguinal hernia, without obstruction or gangrene, not specified as recurrent; R31.0 Gross hematuria
CPT/HCPCS: 74178; Q9967

== ENCOUNTER → 2024-06-29 | Outpatient (REF) | payer MEDICARE, OTHER ==
[~2024-06-29] MED LIST changes: -ISOVUE-370 76% 100ML VIAL As Ordered ONE
[2024-06-29 10:43] LABS: APPEARANCE, URINE CLEAR (CLEAR); BACTERIA, URINE AUTO NEGATIVE (NEGATIVE); BILIRUBIN, URINE AUTO NEGATIVE (NEGATIVE); BLOOD, URINE BLOOD NEGATIVE (NEGATIVE); COLOR, URINE YELLOW (YELLOW); GLUCOSE, URINE (UA) AUTO 3+ mg/dL (NEGATIVE); KETONE, URINE AUTO NEGATIVE (NEGATIVE); LEUKOCYTE ESTERASE, URINE AUTO NEGATIVE (NEGATIVE); MUCUS, URINE SMALL (NEGATIVE); NITRITE, URINE AUTO NEGATIVE (NEGATIVE); PROTEIN, URINE AUTO 1+ mg/dL (NEGATIVE); RBC, URINE AUTO 1 /HPF (0-3); SPECIFIC GRAVITY URINE AUTO 1.012 (1.002-1.035); SQUAMOUS EPITHELIAL CELL UR AU 1 /HPF (0-6); UROBILINOGEN, URINE AUTO 0.2 mg/dL (0.0-2.0); WBC, URINE AUTO 4 /HPF (0-3)
== END ==
LOC: M SMT 10:06
PROVIDERS: ATTEND Physician Assistant
DX: R31.0 Gross hematuria (principal)

== ENCOUNTER → 2024-07-31 | Outpatient (REF) | payer MEDICARE, OTHER | LOC: M LAB REF 11:49 | PROVIDERS: ATTEND Internal Medicine | DX: K74.3 Primary biliary cirrhosis (principal); K74.00 Hepatic fibrosis, unspecified ==

== ENCOUNTER → 2024-08-07 | Outpatient (REF) | payer MEDICARE, OTHER | LOC: M SFHCDERM 17:39 | PROVIDERS: ATTEND Physician Assistant | DX: L57.0 Actinic keratosis (principal) ==

== ENCOUNTER → 2025-01-29 | Outpatient (REF) | payer MEDICARE, OTHER ==
[~2025-01-29] MED LIST changes: -AMIO200T49 PO; +AMIO200T54 PO
== END ==
LOC: M LAB REF 14:04
PROVIDERS: ATTEND Internal Medicine
DX: K74.3 Primary biliary cirrhosis (principal); K74.00 Hepatic fibrosis, unspecified

== ENCOUNTER → 2025-06-07 | Outpatient (REF) | payer MEDICARE, OTHER | LOC: M LAB REF 17:00 | PROVIDERS: ATTEND Nurse Practitioner Family | DX: R31.9 Hematuria, unspecified (principal) ==